=== PATIENT | female | born 1990 | race Caucasian/White ===

== ENCOUNTER 2017-01-09 20:44 | Emergency (ER) | payer SELFPAY ==
[2017-01-09 20:51] VITALS: BP 142/58
--- NOTE | 2017-01-09 20:59 | EDM.PDOC ---
ED HPI GENERAL MEDICAL PROBLEM - General Chief Complaint: Behavioral/Psych Stated Complaint: SUICIDAL Time Seen by Provider: 01/09/17 20:46 - History of Present Illness INITIAL COMMENTS - FREE TEXT/NARRATIVE: HISTORY AND PHYSICAL: History of present illness: This 26-year-old female with history of bipolar disorder presents with chief complaint of depressive episode she states she's feeling overwhelmed and suicidal she has no particular plan she been off her meds since August she comes here after he called the law-enforcement regarding her feelings. Review of systems: As per history of present illness and below otherwise all systems reviewed and negative. Past medical history: As per history of present illness and as reviewed below otherwise noncontributory. Surgical history: As per history of present illness and as reviewed below otherwise noncontributory. Social history: No reported history of drug or alcohol abuse. Family history: As per history of present illness and as reviewed below otherwise noncontributory. Physical exam: HEENT: Atraumatic, normocephalic, pupils reactive, negative for conjunctival pallor or scleral icterus, mucous membranes moist, throat clear, neck supple, nontender, trachea midline. Lungs: Clear to auscultation, breath sounds equal bilaterally, chest nontender. Heart: S1S2, regular, negative for clicks, rubs, or JVD. Abdomen: Soft, nondistended, nontender. Negative for masses or hepatosplenomegaly. Negative for costovertebral tenderness. Pelvis: Stable nontender. Genitourinary: Deferred. Rectal: Deferred. Extremities: Atraumatic, negative for cords or calf pain. Neurovascular unremarkable. Neuro: Awake, alert, oriented. Cranial nerves II through XII unremarkable. Cerebellum unremarkable. Motor and sensory unremarkable throughout. Exam nonfocal. Diagnostics: CBC CMP hCG urine drug screen EtOH Therapeutics: None Impression: #1 depressive episode with suicidal ideation #2 history of bipolar disorder Definitive disposition and diagnosis as appropriate pending reevaluation and review of above. - Related Data Allergies Allergy/AdvReac Type Severity Reaction Status Date / Time loracarbef [From Lorabid] Allergy unknown Verified 01/09/17 20:52 Home Meds: Home Meds . 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 Musculoskeletal History: Reports: None Neurological History: Reports: None Psychiatric History: Reports: Anxiety, Depression Endocrine/Metabolic History: Reports: None Hematologic History: Reports: None Immunologic History: Reports: None Oncologic (Cancer) History: Reports: None Dermatologic History: Reports: None - Infectious Disease History Infectious Disease History: Reports: None - Past Surgical History Female Surgical History: Reports: D&C Social & Family History - Family History Family Medical History: Noncontributory - Tobacco Use Smoking Status *Q: Former Smoker - Caffeine Use Caffeine Use: Reports: Soda - Recreational Drug Use Recreational Drug Use: Yes Recreational Drug Type: Reports: Methamphetamine ED ROS GENERAL - Review of Systems Review Of Systems: ROS reveals no pertinent complaints other than HPI. ED EXAM, GENERAL - Physical Exam Exam: See Below (See dictation) Course - Vital Signs Last Recorded V/S: Last Vital Signs Temp 36.9 C 01/09/17 20:49 Pulse 130 H 01/09/17 20:49 Resp 16 01/09/17 20:49 BP 142/58 H 01/09/17 20:49 Pulse Ox 97 01/09/17 20:49 - Orders/Labs/Meds Orders: Active Orders 24 hr Category Date Time Status EKG 12 Lead [EKG Documentation Completion] [RC] STAT Care 01/09/17 20:52 Active ACETAMINOPHEN [CHEM] Stat Lab 01/09/17 20:48 Ordered CBC WITH AUTO DIFF [HEME] Stat Lab 01/09/17 20:48 Ordered COMPREHENSIVE METABOLIC PN,CMP [CHEM] Stat Lab 01/09/17 20:48 Ordered DRUG SCREEN, URINE [URCHEM] Stat Lab 01/09/17 20:48 Ordered ETHANOL BLOOD MEDICAL [CHEM] Stat Lab 01/09/17 20:48 Ordered FREE T3 [REF] Stat Lab 01/09/17 20:51 Ordered HCG QUALITATIVE,URINE [URCHEM] Stat Lab 01/09/17 20:48 Ordered MAGNESIUM [CHEM] Stat Lab 01/09/17 20:48 Ordered SALICYLATE [CHEM] Stat Lab 01/09/17 20:48 Ordered TSH [CHEM] Stat Lab 01/09/17 20:48 Ordered Departure - Departure Time of Disposition: 20:57 Disposition: DC/Tfer to Psych Hosp/Unit 65 Condition: good Clinical Impression: Depressive disorder Forms: ED Department Discharge - My Orders Last 24 Hours: My Active Orders 01/09/17 20:48 ACETAMINOPHEN [CHEM] Stat CBC WITH AUTO DIFF [HEME] Stat COMPREHENSIVE METABOLIC PN,CMP [CHEM] Stat DRUG SCREEN, URINE [URCHEM] Stat ETHANOL BLOOD MEDICAL [CHEM] Stat HCG QUALITATIVE,URINE [URCHEM] Stat MAGNESIUM [CHEM] Stat SALICYLATE [CHEM] Stat TSH [CHEM] Stat 01/09/17 20:51 FREE T3 [REF] Stat 01/09/17 20:52 EKG 12 Lead [EKG Documentation Completion] [RC] STAT - Assessment/Plan Last 24 Hours: My Active Orders 01/09/17 20:48 ACETAMINOPHEN [CHEM] Stat CBC WITH AUTO DIFF [HEME] Stat COMPREHENSIVE METABOLIC PN,CMP [CHEM] Stat DRUG SCREEN, URINE [URCHEM] Stat ETHANOL BLOOD MEDICAL [CHEM] Stat HCG QUALITATIVE,URINE [URCHEM] Stat MAGNESIUM [CHEM] Stat SALICYLATE [CHEM] Stat TSH [CHEM] Stat 01/09/17 20:51 FREE T3 [REF] Stat 01/09/17 20:52 EKG 12 Lead [EKG Documentation Completion] [RC] STAT
[2017-01-09 21:37] LABS: CHLORIDE,CL 110 mmol/L (98-110); SODIUM,NA 143 mmol/L (136-146)
[2017-01-09 22:03] LABS: ACETAMINOPHEN < 3.0 ug/mL
== END 2017-01-09 21:31 ==
LOC: MW.ED 20:44
DX: F32.9 Major depressive disorder, single episode, unspecified (principal); J45.909 Unspecified asthma, uncomplicated; F41.9 Anxiety disorder, unspecified; Z87.891 Personal history of nicotine dependence
CPT/HCPCS: 36415; 80053; 80305; 81025; 83735; 84443; 84481; 85025; 93005; 99285; G0480; 99283

== ENCOUNTER 2018-04-09 11:00 | Emergency (ER) | payer BC ==
--- NOTE | 2018-04-09 11:16 | EDM.PDOC ---
ED HPI GENERAL MEDICAL PROBLEM - General Stated Complaint: MEDICAL CLEARANCE Time Seen by Provider: 04/09/18 11:10 - History of Present Illness INITIAL COMMENTS - FREE TEXT/NARRATIVE: HISTORY AND PHYSICAL: History of present illness: Patient 27-year-old female history of depression is here in custody of police for medical clearance for police hold . Police were involved in suicide hotline call them for welfare check patient had a superficial self-inflicted abrasion. Patient denies any ingestion patient states she was drinking. She denies up-to- date tetanus Review of systems: As per history of present illness and below otherwise all systems reviewed and negative. Past medical history: As per history of present illness and as reviewed below otherwise noncontributory. Surgical history: As per history of present illness and as reviewed below otherwise noncontributory. Social history: No reported history of drug or alcohol abuse. Family history: As per history of present illness and as reviewed below otherwise noncontributory. Physical exam: HEENT: Atraumatic, normocephalic, pupils reactive, negative for conjunctival pallor or scleral icterus, mucous membranes moist, throat clear, neck supple, nontender, trachea midline. Lungs: Clear to auscultation, breath sounds equal bilaterally, chest nontender. Heart: S1S2, regular, negative for clicks, rubs, or JVD. Abdomen: Soft, nondistended, nontender. Negative for masses or hepatosplenomegaly. Negative for costovertebral tenderness. Pelvis: Stable nontender. Genitourinary: Deferred. Rectal: Deferred. Extremities: Right thigh has a superficial abrasion/laceration good hemostasis, Neuro: Awake, alert, oriented. Cranial nerves II through XII unremarkable. Cerebellum unremarkable. Motor and sensory unremarkable throughout. Exam nonfocal. Diagnostics: None Therapeutics: None Impression: #1 medical clearance for police hold #2 abrasion superficial laceration right Definitive disposition and diagnosis as appropriate pending reevaluation and review of above. - Related Data Allergies Allergy/AdvReac Type Severity Reaction Status Date / Time loracarbef [From Lorabid] Allergy unknown Verified 01/09/17 20:52 Home Meds: Home Meds . 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 Musculoskeletal History: Reports: None Neurological History: Reports: None Psychiatric History: Reports: Anxiety, Depression Endocrine/Metabolic History: Reports: None Hematologic History: Reports: None Immunologic History: Reports: None Oncologic (Cancer) History: Reports: None Dermatologic History: Reports: None - Infectious Disease History Infectious Disease History: Reports: None - Past Surgical History Female Surgical History: Reports: D&C Social & Family History - Family History Family Medical History: Noncontributory - Caffeine Use Caffeine Use: Reports: Soda ED ROS GENERAL - Review of Systems Review Of Systems: ROS reveals no pertinent complaints other than HPI. ED EXAM, GENERAL - Physical Exam Exam: See Below (dictation) Departure - Departure Time of Disposition: 11:15 Disposition: Home, Self-Care 01 Condition: Good Clinical Impression: Encounter for medical clearance for patient hold - Discharge Information Referrals: PCP,None [Primary Care Provider] - Additional Instructions: The following information is given to patients seen in the emergency department who are being discharged to home. This information is to outline your options for follow-up care. We provide all patients seen in our emergency department with a follow-up referral. The need for follow-up, as well as the timing and circumstances, are variable depending upon the specifics of your emergency department visit. If you don't have a primary care physician on staff, we will provide you with a referral. We always advise you to contact your personal physician following an emergency department visit to inform them of the circumstance of the visit and for follow-up with them and/or the need for any referrals to a consulting specialist. The emergency department will also refer you to a specialist when appropriate. This referral assures that you have the opportunity for followup care with a specialist. All of these measure are taken in an effort to provide you with optimal care, which includes your followup. Under all circumstances we always encourage you to contact your private physician who remains a resource for coordinating your care. When calling for followup care, please make the office aware that this follow-up is from your recent emergency room visit. If for any reason you are refused follow-up, please contact the [facility] emergency department at and asked to speak to the emergency department charge nurse. Follow-up primary medical doctor return as needed as discussed
[2018-04-09 11:18] VITALS: BP 123/89
[2018-04-09] MEDS ORDERED: Bacitracin Oint 1 GM U/D Packet TOP ONE (11:27)
[2018-04-09] MEDS ORDERED: Diphtheria,Pertussis(Acell),Tetanus Vaccine 0.5 ML Syringe IM ONE (11:27)
== END 2018-04-09 11:40 | disposition home or self-care (01) ==
LOC: MW.ED 11:00
DX: S71.111A Laceration without foreign body, right thigh, initial encounter (principal); F32.9 Major depressive disorder, single episode, unspecified; Z23 Encounter for immunization; Z88.8 Allergy status to other drugs, medicaments and biological substances; X83.8XXA Intentional self-harm by other specified means, initial encounter
CPT/HCPCS: 90471; 90715; 99282; 99282-25

== ENCOUNTER 2020-08-28 08:39 | Day surgery (SDC) | payer BC ==
[2020-08-28] MEDS ORDERED: Acetaminophen 1,000 MG in Premix Bag 1 BAG IV ONE (09:44)
[2020-08-28] MEDS ORDERED: Lactated Ringers 1,000 ML IV SCH ×2 (10:00→19:45)
[2020-08-28] MEDS ORDERED: metroNIDAZOLE/Normal Saline 500 MG in Premix Bag 1 BAG IV ONE (10:00)
--- NOTE | 2020-08-28 10:18 | PCM.PREANE ---
Preanesthetic Assessment - Anesthesia/Transfusion/Family Hx Anesthesia History: Prior Anesthesia Without Reaction Family History of Anesthesia Reaction: No Transfusion History: Prior Transfusion Without Reaction - Review of Systems General: No Symptoms Pulmonary: No Symptoms Cardiovascular: No Symptoms Gastrointestinal: No Symptoms Neurological: No Symptoms Other: Reports: None - Physical Assessment NPO Status Date: 08/27/20 Height: 5 ft 4 in Weight: 68.946 kg ASA Class: 2 Mental Status: Alert & Oriented x3 Airway Class: Mallampati = 2 Dentition: Reports: Normal Dentition ROM/Head Extension: Full Lungs: Clear to Auscultation, Normal Respiratory Effort Cardiovascular: Regular Rate, Regular Rhythm - Lab Values: Laboratory Last Values WBC 7.93 K/uL (4.0-11.0) 08/28/20 09:50 RBC 3.81 M/uL (4.30-5.90) L 08/28/20 09:50 Hgb 9.4 g/dL (12.0-16.0) L 08/28/20 09:50 Hct 30.8 % (36.0-46.0) L 08/28/20 09:50 MCV 80.8 fL (80.0-98.0) 08/28/20 09:50 MCH 24.7 pg (27.0-32.0) L 08/28/20 09:50 MCHC 30.5 g/dL (31.0-37.0) L 08/28/20 09:50 RDW Std Deviation 50.2 fl (28.0-62.0) 08/28/20 09:50 RDW Coeff of Mega 17 % (11.0-15.0) H 08/28/20 09:50 Plt Count 517 K/uL (150-400) H 08/28/20 09:50 MPV 9.40 fL (7.40-12.00) 08/28/20 09:50 Neut % (Auto) 66.3 % (48.0-80.0) 08/28/20 09:50 Lymph % (Auto) 26.7 % (16.0-40.0) 08/28/20 09:50 Stanton % (Auto) 5.3 % (0.0-15.0) 08/28/20 09:50 Eos % (Auto) 1.4 % (0.0-7.0) 08/28/20 09:50 Baso % (Auto) 0.3 % (0.0-1.5) 08/28/20 09:50 Neut # (Auto) 5.3 K/uL (1.4-5.7) 08/28/20 09:50 Lymph # (Auto) 2.1 K/uL (0.6-2.4) 08/28/20 09:50 Stanton # (Auto) 0.4 K/uL (0.0-0.8) 08/28/20 09:50 Eos # (Auto) 0.1 K/uL (0.0-0.7) 08/28/20 09:50 Baso # (Auto) 0.0 K/uL (0.0-0.1) 08/28/20 09:50 Nucleated RBC % 0.0 /100WBC 08/28/20 09:50 Nucleated RBCs # 0 K/uL 08/28/20 09:50 - Allergies Allergies/Adverse Reactions: Allergies Allergy/AdvReac Type Severity Reaction Status Date / Time loracarbef [From Lorabid] Allergy Cannot Verified 08/22/20 09:48 Remember - Blood Blood Available: No - Anesthesia Plan Pre-Op Medication Ordered: None - Acknowledgements Anesthesia Type Planned: General Anesthesia Pt an Appropriate Candidate for the Planned Anesthesia: Yes Alternatives and Risks of Anesthesia Discussed w Pt/Guardian: Yes Pt/Guardian Understands and Agrees with Anesthesia Plan: Yes Additional Comments: anes prob list: ptsd, hx polysubst abuse, no alcohol x 3 mo, last meth 1 wk ago. 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 Musculoskeletal History: Reports: Back Pain, Chronic Neurological History: Reports: Migraines Psychiatric History: Reports: Addiction, Anxiety, Depression, PTSD, Other (See Below) Other Psychiatric History: deliberate self-cutting Endocrine/Metabolic History: Reports: None Hematologic History: Reports: Blood Transfusion(s) Immunologic History: Reports: None Oncologic (Cancer) History: Reports: None Dermatologic History: Reports: None - Infectious Disease History Infectious Disease History: Reports: None - Past Surgical History Head Surgeries/Procedures: Reports: None HEENT Surgical History: Reports: Tonsillectomy Cardiovascular Surgical History: Reports: None Respiratory Surgical History: Reports: None GI Surgical History: Reports: None Female Surgical History: Reports: D&C Endocrine Surgical History: Reports: None Neurological Surgical History: Reports: None Musculoskeletal Surgical History: Reports: None Oncologic Surgical History: Reports: None Dermatological Surgical History: Reports: None - SUBSTANCE USE Tobacco Use Within Last Twelve Months: Smokeless Tobacco Recreational Drug Type: Reports: Methamphetamine - HOME MEDS Home Medications: Home Meds traZODone HCl [Trazodone HCl] 50 mg PO BEDTIME 10/30/18 [History] FLUoxetine HCl [Fluoxetine HCl] 40 mg PO DAILY 08/22/20 [History] Naltrexone 50 mg PO DAILY 08/22/20 [History] SUMAtriptan succinate [Imitrex] 1 tab PO ASDIRECTED PRN 08/22/20 [History] traMADol HCl [Tramadol HCl] 1 tab PO ASDIRECTED PRN 08/22/20 [History] - CURRENT (IN HOUSE) MEDS Current Meds: Current Medications Gentamicin Sulfate 80 mg/ (Sodium Chloride) 52 mls @ 100 mls/hr IV ONETIME ONE Stop: 08/28/20 10:31 Metronidazole 500 mg/ Premix 100 mls @ 100 mls/hr IV ONETIME ONE Stop: 08/28/20 10:59 Lactated Ringer's (Ringers, Lactated) 1,000 mls @ 125 mls/hr IV ASDIRECTED BHARAT Discontinued Medications Acetaminophen 1,000 mg/ Premix 100 mls @ 400 mls/hr IV NOW ONE Stop: 08/28/20 09:58
[2020-08-28 10:36] LABS: BLOOD UREA NITROGEN,BUN 8 mg/dL (7.0-18.0); CARBON DIOXIDE,CO2 26.9 mmol/L (21.0-32.0); CHLORIDE,CL 103 mmol/L (98-107); GLUCOSE RANDOM 88 mg/dL (74-106); POTASSIUM,K 3.9 mmol/L (3.5-5.1); SODIUM,NA 137 mmol/L (136-145)
[2020-08-28] MEDS ORDERED: Scopolamine 1.5 MG Transdermal Patch TRDERM PRN (10:44)
[2020-08-28] MEDS ORDERED: Octyl 2-Cyanoacrylate 1 Tube ONE (10:52)
[2020-08-28] MEDS ORDERED: Bupivacaine 25%/EPINEPHrine/PF 30 ML ONE (10:53)
[2020-08-28] MEDS ORDERED: Midazolam 1 MG/ML 2 ML SDV ONE (10:58)
[2020-08-28] MEDS ORDERED: Propofol 200 MG/20 ML SDV ONE (10:58)
[2020-08-28] MEDS ORDERED: fentaNYL 250 MCG/5 ML SDV ONE (10:58)
[2020-08-28] MEDS ORDERED: Lidocaine 2% 5 ML SDV ONE (10:59)
[2020-08-28] MEDS ORDERED: Ondansetron 4 MG/2 ML SDV ONE (10:59)
[2020-08-28] MEDS ORDERED: Glycopyrrolate 0.2 MG/ML SDV ONE (10:59)
[2020-08-28] MEDS ORDERED: Ketorolac 30 MG/ML SDV ONE (10:59)
[2020-08-28] MEDS ORDERED: Rocuronium Bromide 50 MG/5 ML Syringe ONE ×2 (10:59→12:34)
[2020-08-28] MEDS ORDERED: HYDROmorphone 2 MG/ML Syringe ONE (12:23)
[2020-08-28] MEDS ORDERED: fentaNYL 100 MCG/2 ML SDV ONE (12:51)
[2020-08-28] MEDS ORDERED: Labetalol 100 MG/20 ML MDV ONE (13:14)
[2020-08-28] MEDS ORDERED: Ondansetron 4 MG/2 ML SDV IVPUSH PRN ×2 (13:34→19:30)
[2020-08-28] MEDS ORDERED: Atropine 0.1 MG/ML 10 ML Syringe IVPUSH PRN ×2 (13:34)
[2020-08-28] MEDS ORDERED: fentaNYL 100 MCG/2 ML SDV IVPUSH PRN (13:34)
[2020-08-28] MEDS ORDERED: Albuterol 0.083% 2.5 MG/3 ML Neb Soln NEB PRN (13:34)
[2020-08-28] MEDS ORDERED: EPINEPHrine 1:10,000 1 MG/10 ML Syringe IVPUSH PRN (13:34)
[2020-08-28] MEDS ORDERED: 50% Dextrose in Water 50 ML Syringe IVPUSH PRN (13:34)
[2020-08-28] MEDS ORDERED: Naloxone 0.4 MG/ML Syringe IVPUSH PRN (13:34)
[2020-08-28] MEDS ORDERED: HYDROmorphone 2 MG/ML Syringe IVPUSH PRN (13:34)
--- NOTE | 2020-08-28 14:33 | PCM.OPNOTE ---
- General Post-Op/Procedure Note Date of Surgery/Procedure: 08/28/20 Operative Procedure(s): Laparoscopic cholecytectomy. Lysis of adhesions Findings: White gallbladder with stone and adhesions, Multiple abdominal adhesions. Dictation #[id number] Pre Op Diagnosis: Symptomatic cholelithiasis Post-Op Diagnosis: Chronic cholecystitis Primary Surgeon: Mao Nunes Pathology: gallbladder. EBL in mLs: 15 Condition: Good Free Text/Narrative:: Intake & Output 08/27/20 08/28/20 08/28/20 22:59 06:59 14:59 Output Total 100 Balance -100
[2020-08-28] MEDS ORDERED: Ketorolac 30 MG/ML SDV IVPUSH ONE (14:49)
--- NOTE | 2020-08-28 15:04 | PCM.POSTAN ---
POST ANESTHESIA ASSESSMENT - MENTAL STATUS Mental Status: Alert, Oriented - VITAL SIGNS Vital Signs: Last Vital Signs Temp 97.3 F 08/28/20 14:23 Pulse 89 08/28/20 14:38 Resp 15 08/28/20 14:38 BP 100/54 L 08/28/20 14:38 Pulse Ox 94 L 08/28/20 14:38 - RESPIRATORY Respiratory Status: Respiratory Rate WNL, Airway Patent, O2 Saturation Stable - CARDIOVASCULAR CV Status: Pulse Rate WNL, Blood Pressure Stable - GASTROINTESTINAL GI Status: No Symptoms - POST OP HYDRATION Hydration Status: Adequate & Stable
[2020-08-28] MEDS ORDERED: diphenhydrAMINE 50 MG/ML SDV IVPUSH ONE (16:49)
--- NOTE | 2020-08-28 16:54 | OR ---
SURGEON: NIC PALACIOS MD DATE OF PROCEDURE: 08/28/2020 PREOPERATIVE DIAGNOSIS: Symptomatic cholelithiasis. POSTOPERATIVE DIAGNOSIS: Symptomatic cholelithiasis with chronic cholecystitis and abdominal adhesions. PROCEDURE PERFORMED: Laparoscopic cholecystectomy and lysis of adhesions. FINDINGS: Inflamed gallbladder with stone and adhesions. PRIMARY SURGEON: Nic Palacios MD ANESTHESIA: General. BLOOD LOSS: 15. COMPLICATIONS: None. SPECIMEN: Gallbladder. REASON FOR PROCEDURE: The patient is a pleasant 29-year-old female who has had some abdominal pain for quite some time. It comes and goes, but is mainly pretty steady. She was told multiple times she needs to go to the ER if the pain was severe; however, she did not want to go because of the potential cost. She had an ultrasound, it showed gallstones. She did get some preop labs which showed a normal white cell count and not elevated LFTs, in fact AST is of 12, which was a little low. I did go over with the patient risks, goals, and alternatives to the gallbladder surgery which include, but not limited to, bleeding; bile leak; injury to nearby structures, common bile duct and duodenum; retained gallstones with open hernia formation; and that this may be something other than a gallbladder. The patient understands, also was talking with the . Again, I went over with the patient today, but again explained to them that if she was having severe pain, she really needed to go to the ER and that we do not prescribe medicines to mask potentially major gallbladder infections. After talking with both, they understood and they were happy before the surgery. OPERATIVE NARRATIVE: The patient was brought back to the OR. She was prepped and draped in usual sterile fashion. Only one SCD was placed because she had an IV in her foot. A preoperative antibiotic was given and anesthesia provided by the Anesthesia team. After time-out was performed, an infraumbilical incision was made down to the fascia. Fascia was then entered in open Micheal technique. Micheal trocar was placed and pneumoperitoneum was established. Entered the abdomen, the patient did have a lot of loose abdominal adhesions. These were easily taken down with just some blunt dissection with the scope. Now, three more 5 mm trocars were placed, one in the midepigastric, one in the right upper quadrant, one in the right lower abdomen, were placed under direct visualization. The gallbladder had a whitish hue and the omentum was fairly stuck to it, but with some gentle dissection with blunt and Harmonic scalpel the omentum came down. Again, with some gentle, mainly blunt dissection, did dissect out the cystic duct and the cystic artery. She did have a little bit extra adipose around here and tissue was edematous, so took a little extra time, but we did get a very good critical view of the cystic duct, cystic artery, and liver bed. Did dissect up all the way at the gallbladder fossa, did have a great critical view. Now, clips were placed on the cystic duct and the cystic artery and transected. The rest of the gallbladder was removed with the Harmonic scalpel, no other tubular structures were encountered. The gallbladder was then placed in the Endo Catch bag. Now, the rest of the abdomen was again inspected. The bed had good hemostasis, clips were in place and did a little bit of suction and irrigation. Now, the gallbladder was removed with the Endo Catch bag and the pneumoperitoneum was released, another 5 mm trocar was removed. The Micheal trocar incision and the fascia were closed with 0 Vicryl in a figure- of-eight fashion. There was good closure. Now, all the trocar sites were injected with Exparel and closed with 4-0 Monocryl and Dermabond. At the end of the case, sponge and needle counts were correct. The patient was transferred to the recovery room in stable condition. YOON / LORI /[id number]
[2020-08-28] MEDS ORDERED: Ondansetron 4 MG/2 ML SDV IVPUSH ONE (17:23)
--- NOTE | 2020-08-28 17:35 | PCM.SN.2 ---
- Free Text/Narrative Note: Patient had witnessed episodes of desaturation: mid 80s-90s which would improve with supplemental oxygen. Once saturations improved oxygen, the patient was weaned down to room air, and patient desaturated again which was witnessed by me and Lindsay RN. The decision was made by me to admit the patient for observation . This was discussed with the patient, and Dr. Nunes. The patient also complains of itching and Benadryl was given for this. We will observe the patient fo [address] Nunes will put in the orders for pain medications. Plan: 1. Continuous Pulse oximetry 2. Nasal Cannula wean as tolerated per orders 3. Regular diet as tolerated 4. Zofran 4 mg prn for N/V 5. Continue Incentive Spirometer per Dr. Nunes's orders 6. Tramadol will be ordered by Dr. Nunes. 7. Will reassess tomorrow
[2020-08-28] MEDS: traMADol 50 MG Tab PO PRN (21:26)
[2020-08-29] MEDS: traMADol 50 MG Tab PO PRN (03:55)
--- NOTE | 2020-08-29 06:30 | PCM48HPAN ---
Post Anesthesia Note - EVALUATION WITHIN 48HRS OF ANESTHETIC Vital Signs in Normal Range: Yes Patient Participated in Evaluation: Yes Respiratory Function Stable: Yes Airway Patent: Yes Cardiovascular Function Stable: Yes Hydration Status Stable: Yes Pain Control Satisfactory: Yes Nausea and Vomiting Control Satisfactory: Yes Mental Status Recovered: Yes Vital Signs: Last Vital Signs Temp 36.6 C 08/29/20 04:05 Pulse 75 08/29/20 04:05 Resp 14 08/29/20 04:05 BP 106/55 L 08/29/20 04:05 Pulse Ox 95 08/29/20 04:05 - COMMENTS/OBSERVATIONS Free Text/Narrative:: Patient doing much better spo2 95% and higher. She may discharged.
[2020-08-29 11:05] VITALS: BP 94/55; PULSE 71
--- NOTE | 2020-08-29 11:20 | PN ---
SUBJECTIVE: The patient is postop day 1 from her laparoscopic cholecystectomy. Yesterday, in the recovery room, Dr. Rivera noted the patient had a couple of episodes of desaturation. She was doing better; however, Dr. Rivera would like to keep her overnight for observation until the anesthesia from her case wore off a little better. Over the evening, the patient was weaned off her oxygen and has been saturating well. The patient says she is feeling better. She does have some mild abdominal pain. She has been eating; in fact, there is a barbecue box in the room that her brought for her. She says eat this without issues. She is passing some flatus but no BM yet. The patient feels ready to go home. OBJECTIVE: GENERAL: The patient is lying comfortably in her hospital bed. She is alert, oriented, and in no acute distress. VITAL SIGNS: Temperature is 97.9, pulse is 75, blood pressure is 106/55, and saturating 95% on room air. LUNGS: Clear to auscultation bilaterally. No rhonchi or wheezing heard. HEART: Regular rate and rhythm. No murmur is appreciated. ABDOMEN: Soft with some mild tenderness, expected after her surgery. The incisions are all clean, dry, and intact with Dermabond in place. No signs of infection. ASSESSMENT AND PLAN: The patient is postoperative day 1 from a laparoscopic cholecystectomy, doing well. We will send her home. I went over the discharge instructions given to the patient. She should take it easy for at least the next week for recovery. She may shower today. I again stressed to the patient it is important that if she is having issues, she needs to call or the patient should go to the emergency room. She should not wait at home and tough it out. The patient understands. YOON SANDOVAL /[id number] SAILAJA
== END 2020-08-29 09:53 | disposition home or self-care (01) ==
LOC: MW.SDS 08:39 → MW.MS 17:08 → MW.SDS 08-29 09:53
PROVIDERS: ATTEND Surgery
DX: K80.10 Calculus of gallbladder with chronic cholecystitis without obstruction (principal); K66.0 Peritoneal adhesions (postprocedural) (postinfection); K82.8 Other specified diseases of gallbladder; F17.200 Nicotine dependence, unspecified, uncomplicated; F41.9 Anxiety disorder, unspecified; F32.9 Major depressive disorder, single episode, unspecified; Z88.8 Allergy status to other drugs, medicaments and biological substances; Z79.899 Other long term (current) drug therapy; Z98.890 Other specified postprocedural states
CPT/HCPCS: 36415; 47562; 80053; 84703; 85025; 88304; A9270; J1170; J1200; J1580; J1885; J2001; J2250; J2704; J3010; J3490; J7120; J2405

== ENCOUNTER 2021-05-26 07:04 | Day surgery (SDC) | payer BC ==
[~2021-05-26 07:04] MED LIST: Scopolamine 1.5 MG Transdermal Patch ONE
[2021-05-26] MEDS ORDERED: Ketorolac 30 MG/ML SDV ONE (07:23)
[2021-05-26] MEDS ORDERED: Ondansetron 4 MG/2 ML SDV ONE (07:23)
[2021-05-26] MEDS ORDERED: Metoclopramide 10 MG/2 ML SDV ONE (07:23)
[2021-05-26] MEDS ORDERED: Dexamethasone 4 MG/ML 5 ML MDV ONE (07:23)
[2021-05-26] MEDS ORDERED: Lidocaine 2% 5 ML SDV ONE (07:23)
[2021-05-26] MEDS ORDERED: propofoL 50 ML ONE (07:25)
[2021-05-26] MEDS ORDERED: Naloxone 0.4 MG/ML Syringe IVPUSH PRN (08:13)
[2021-05-26] MEDS ORDERED: fentaNYL 100 MCG/2 ML SDV IVPUSH PRN (08:13)
[2021-05-26] MEDS ORDERED: Morphine 2 MG/ML SYRINGE IVPUSH PRN (08:13)
[2021-05-26] MEDS ORDERED: Metoclopramide 10 MG/2 ML SDV IVPUSH PRN (08:13)
[2021-05-26] MEDS ORDERED: Ondansetron 4 MG/2 ML SDV IVPUSH PRN (08:13)
[2021-05-26] MEDS ORDERED: HYDROmorphone 2 MG/ML Syringe IVPUSH PRN (08:13)
[2021-05-26] MEDS ORDERED: Albuterol 0.083% 2.5 MG/3 ML Neb Soln NEB PRN (08:13)
--- NOTE | 2021-05-26 08:15 | PCM.PREANE ---
Preanesthetic Assessment - Anesthesia/Transfusion/Family Hx Anesthesia History: Prior Anesthesia Reaction Type of Anesthesia Reaction: Excessive Somnolence Family History of Anesthesia Reaction: No Transfusion History: Prior Transfusion Without Reaction - Review of Systems General: No Symptoms Pulmonary: No Symptoms Cardiovascular: No Symptoms Gastrointestinal: No Symptoms Neurological: No Symptoms Other: Reports: None, Depression, Anxiety - Physical Assessment NPO Status Date: 05/26/21 NPO Status Time: 00:00 Vital Signs: Last Vital Signs Temp 97.9 F 05/26/21 07:39 Pulse 63 05/26/21 07:39 Resp 16 05/26/21 07:39 BP 101/53 L 05/26/21 07:39 Pulse Ox 98 05/26/21 07:39 Height: 5 ft 4 in Weight: 170 lb ASA Class: 3 Mental Status: Alert & Oriented x3 Airway Class: Mallampati = 2 Dentition: Reports: Normal Dentition, Broken Tooth/Teeth, Missing Tooth/Teeth Thyro-Mental Finger Breadths: 2 Mouth Opening Finger Breadths: 3 ROM/Head Extension: Full Lungs: Clear to Auscultation, Normal Respiratory Effort Cardiovascular: Regular Rate, Regular Rhythm - Lab Values: Laboratory Last Values WBC 11.63 K/uL (4.0-11.0) H 05/26/21 07:19 RBC 3.78 M/uL (4.30-5.90) L 05/26/21 07:19 Hgb 10.2 g/dL (12.0-16.0) L 05/26/21 07:19 Hct 32.0 % (36.0-46.0) L 05/26/21 07:19 MCV 84.7 fL (80.0-98.0) 05/26/21 07:19 MCH 27.0 pg (27.0-32.0) 05/26/21 07:19 MCHC 31.9 g/dL (31.0-37.0) 05/26/21 07:19 RDW Std Deviation 46.7 fl (28.0-62.0) 05/26/21 07:19 RDW Coeff of Mega 15 % (11.0-15.0) 05/26/21 07:19 Plt Count 387 K/uL (150-400) 05/26/21 07:19 MPV 10.00 fL (7.40-12.00) 05/26/21 07:19 Neut % (Auto) 68.7 % (48.0-80.0) 05/26/21 07:19 Lymph % (Auto) 24.4 % (16.0-40.0) 05/26/21 07:19 Franklin % (Auto) 6.1 % (0.0-15.0) 05/26/21 07:19 Eos % (Auto) 0.5 % (0.0-7.0) 05/26/21 07:19 Baso % (Auto) 0.3 % (0.0-1.5) 05/26/21 07:19 Neut # (Auto) 8.0 K/uL (1.4-5.7) H 05/26/21 07:19 Lymph # (Auto) 2.8 K/uL (0.6-2.4) H 05/26/21 07:19 Franklin # (Auto) 0.7 K/uL (0.0-0.8) 05/26/21 07:19 Eos # (Auto) 0.1 K/uL (0.0-0.7) 05/26/21 07:19 Baso # (Auto) 0.0 K/uL (0.0-0.1) 05/26/21 07:19 Nucleated RBC % 0.0 /100WBC 05/26/21 07:19 Nucleated RBCs # 0 K/uL 05/26/21 07:19 HCG, Qual NEGATIVE (NEG) 05/26/21 07:19 - Allergies Allergies/Adverse Reactions: Allergies Allergy/AdvReac Type Severity Reaction Status Date / Time loracarbef [From Lorabid] Allergy Rash Verified 05/14/21 09:52 - Acknowledgements Anesthesia Type Planned: General Anesthesia Pt an Appropriate Candidate for the Planned Anesthesia: Yes Alternatives and Risks of Anesthesia Discussed w Pt/Guardian: Yes Pt/Guardian Understands and Agrees with Anesthesia Plan: Yes PreAnesthesia Questionnaire HEENT History: Reports: Other (See Below) Other HEENT History: wears glasses/contacts Cardiovascular History: Reports: None Respiratory History: Reports: Asthma Gastrointestinal History: Reports: None Genitourinary History: Reports: None [employer] History: Reports: , Spontaneous Musculoskeletal History: Reports: None Neurological History: Reports: Migraines Psychiatric History: Reports: Addiction, Anxiety, Bipolar, Depression, PTSD, Other (See Below) Other Psychiatric History: hx of deliberate self-cutting Endocrine/Metabolic History: Reports: None Hematologic History: Reports: Blood Transfusion(s) Immunologic History: Reports: None Oncologic (Cancer) History: Reports: None Dermatologic History: Reports: None - Infectious Disease History Infectious Disease History: Reports: None - Past Surgical History Head Surgeries/Procedures: Reports: None HEENT Surgical History: Reports: Tonsillectomy Cardiovascular Surgical History: Reports: None Respiratory Surgical History: Reports: None GI Surgical History: Reports: Cholecystectomy Female Surgical History: Reports: D&C Endocrine Surgical History: Reports: None Neurological Surgical History: Reports: None Musculoskeletal Surgical History: Reports: None Oncologic Surgical History: Reports: None Dermatological Surgical History: Reports: None - SUBSTANCE USE Tobacco Use Within Last Twelve Months: Smokeless Tobacco - HOME MEDS Home Medications: Home Meds Albuterol Sulfate [Albuterol Sulfate HFA] 1 - 2 puff INH ASDIRECTED PRN 05/14/21 [History] - CURRENT (IN HOUSE) MEDS Current Meds: Current Medications Discontinued Medications Dexamethasone (Dexamethasone 4 Mg/Ml 5 Ml Mdv) Confirm Administered Dose 20 mg .ROUTE .STK-MED ONE Stop: 05/26/21 07:24 Acetaminophen (Ofirmev 1000 Mg/100 Ml) Confirm Administered Dose 100 mls @ as directed .ROUTE .STK-MED ONE Stop: 05/26/21 07:22 Propofol (Diprivan 50 Ml) Confirm Administered Dose 50 mls @ as directed .ROUTE .STK-MED ONE Stop: 05/26/21 07:26 Ketorolac Tromethamine (Ketorolac 30 Mg/Ml Sdv) Confirm Administered Dose 30 mg .ROUTE .STK-MED ONE Stop: 05/26/21 07:24 Lidocaine (Lidocaine 2% 5 Ml Sdv) Confirm Administered Dose 5 ml .ROUTE .STK-MED ONE Stop: 05/26/21 07:24 Metoclopramide HCl (Metoclopramide 10 Mg/2 Ml Sdv) Confirm Administered Dose 10 mg .ROUTE .STK-MED ONE Stop: 05/26/21 07:24 Ondansetron HCl (Ondansetron 4 Mg/2 Ml Sdv) Confirm Administered Dose 4 mg .ROUTE .STK-MED ONE Stop: 05/26/21 07:24 Scopolamine (Scopolamine 1.5 Mg Transdermal Patch) Confirm Administered Dose 1.5 mg .ROUTE .[facility] ONE Stop: 05/26/21 07:04
[2021-05-26] MEDS ORDERED: fentaNYL 100 MCG/2 ML SDV ONE (08:20)
--- NOTE | 2021-05-26 09:11 | PCM.OPNOTE ---
- General Post-Op/Procedure Note Date of Surgery/Procedure: 05/26/21 Operative Procedure(s): Operative hysteroscopy with polypectomy, dilation and curettage Findings: Anteverted uterus sounded to 10cm. Large endometrial polyp with thin stalk originating at the left mid-uterine wall extruding through the cervix. Pre Op Diagnosis: 1. Endometrial polyp. 2. Excessive and frequent menstruation with irregular cycles Post-Op Diagnosis: 1. Endometrial polyp. 2. Excessive and frequent menstruation with irregular cycles Anesthesia Technique: General LMA Primary Surgeon: Sierra King [employer] Technologist: Gael Yost Pathology: Endometrial polyp, endometrial curettings Fluid Replacement, Intraop: 800 Output, Urine Amount: 75 EBL in mLs: 10 Complications: None known Condition: Good Free Text/Narrative:: Fluid deficit 100cc at the end of procedure Dictation #[id number]
--- NOTE | 2021-05-26 09:11 | PCM.POSTAN ---
POST ANESTHESIA ASSESSMENT - MENTAL STATUS Mental Status: Alert, Oriented - VITAL SIGNS Vital Signs: Last Vital Signs Temp 36.6 C 05/26/21 07:39 Pulse 63 05/26/21 07:39 Resp 16 05/26/21 07:39 BP 101/53 L 05/26/21 07:39 Pulse Ox 98 05/26/21 07:39 - RESPIRATORY Respiratory Status: Respiratory Rate WNL, Airway Patent, O2 Saturation Stable - CARDIOVASCULAR CV Status: Pulse Rate WNL, Blood Pressure Stable - GASTROINTESTINAL GI Status: No Symptoms - POST OP HYDRATION Hydration Status: Adequate & Stable
--- NOTE | 2021-05-26 09:12 | PCM48HPAN ---
Post Anesthesia Note - EVALUATION WITHIN 48HRS OF ANESTHETIC Vital Signs in Normal Range: Yes Patient Participated in Evaluation: Yes Respiratory Function Stable: Yes Airway Patent: Yes Cardiovascular Function Stable: Yes Hydration Status Stable: Yes Pain Control Satisfactory: Yes Nausea and Vomiting Control Satisfactory: Yes Mental Status Recovered: Yes Vital Signs: Last Vital Signs Temp 36.6 C 05/26/21 07:39 Pulse 63 05/26/21 07:39 Resp 16 05/26/21 07:39 BP 101/53 L 05/26/21 07:39 Pulse Ox 98 05/26/21 07:39
[2021-05-26 11:40] VITALS: BP 102/56; PULSE 79
--- NOTE | 2021-05-26 15:11 | OR ---
SURGEON: HAILE FUENTES MD DATE OF PROCEDURE: 05/26/2021 PREOPERATIVE DIAGNOSES: 1. Endometrial polyp. 2. Excessive and frequent menstruation with irregular cycles. POSTOPERATIVE DIAGNOSES: 1. Endometrial polyp. 2. Excessive and frequent menstruation with irregular cycles. PROCEDURES: Operative hysteroscopy with polypectomy and dilation and curettage. PRIMARY SURGEON: Haile Fuentes MD ADDITIONAL SURGEON: Gael Yost MD ANESTHESIA: LMA. COMPLICATIONS: None known. ESTIMATED BLOOD LOSS: 10 mL. INTRAVENOUS FLUIDS: 800 mL of crystalloid. FLUID DEFICIT: 100 mL at the end of the procedure. URINE OUTPUT: 75 mL straight catheterized prior to procedure. INDICATIONS: The patient is a 30-year-old female with excessive and frequent vaginal bleeding with a known endometrial polyp. FINDINGS: Anteverted uterus sounded to 10 cm. Large endometrial polyp with a thin stalk originating at the left mid uterine wall, extruding through the cervix. PATHOLOGY: Endometrial polyp, endometrial curettings. PROCEDURE IN DETAIL: The patient was taken to the operating room where an LMA was introduced. She was then prepped and draped in the dorsal lithotomy position. The bladder was then drained. A time-out was then held. An open-sided Graves speculum was inserted into the vagina to visualize the cervix, which was then grasped at 12 o'clock with a long Allis. The endometrial polyp was noted to be extruding through the cervix at this time. The uterus was sounded to 10 cm, and MyoSure hysteroscope was then inserted into the cervix and to the uterus. Bilateral ostia were visualized without difficulty. The MyoSure was then introduced and used to sever the thin stalk. The MyoSure and hysteroscope were then removed, and the polyp was then grasped with ring forceps and removed through the cervical os and has been sent to Pathology. The MyoSure scope was then inserted one additional time, and small amount of polyp stalk was noted to be adhered to the left uterine sidewall. The MyoSure device was then introduced once again, and this portion of the stalk was removed. The MyoSure and hysteroscope were then removed from the uterus, and sharp curettage was then performed with a medium Agosto curette, and specimen was sent to Pathology. A small amount of oozing was noted at the cervical os, and silver nitrate was used to achieve hemostasis. The Allis clamp was then removed. Hemostasis was noted. All instruments were then removed from the vagina. Sponge, lap, and needle counts were correct x2. The patient was taken to recovery in stable condition. VIKTORIA SANDOVAL /[id number] MTDD
== END 2021-05-26 11:34 | disposition home or self-care (01) ==
LOC: MW.SDS 07:04
PROVIDERS: ATTEND Obstetrics & Gynecology
DX: N84.0 Polyp of corpus uteri (principal); J45.909 Unspecified asthma, uncomplicated; Z98.890 Other specified postprocedural states; Z79.899 Other long term (current) drug therapy; Z90.49 Acquired absence of other specified parts of digestive tract; Z88.8 Allergy status to other drugs, medicaments and biological substances
CPT/HCPCS: 36415; 58558; 84703; 85025; J0131; J1100; J1885; J2370; J2704; J3010; 00952; 88305; J2405; J2765

== ENCOUNTER 2021-08-06 15:54 | Emergency (ER) | payer BC, OTHER ==
[2021-08-06] MEDS ORDERED: Bacitracin Oint 1 GM U/D Packet TOP ONE (15:55)
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
[2021-08-06 16:17] VITALS: BP 121/64; PULSE 83
[2021-08-06] MEDS ORDERED: Sodium Chloride 0.9% 1,000 ML IV ONE (16:43)
== END 2021-08-06 17:10 ==
LOC: MW.ED 15:54
DX: S71.111A Laceration without foreign body, right thigh, initial encounter (principal); F19.10 Other psychoactive substance abuse, uncomplicated; J45.909 Unspecified asthma, uncomplicated; Z88.8 Allergy status to other drugs, medicaments and biological substances; X78.8XXA Intentional self-harm by other sharp object, initial encounter; Y92.009 Unspecified place in unspecified non-institutional (private) residence as the place of occurrence of the external cause
CPT/HCPCS: 12005; 99284-25

== ENCOUNTER 2021-08-06 23:23 | Emergency (ER) | payer BC, OTHER ==
[2021-08-06 23:32] VITALS: BP 134/83; PULSE 86
[2021-08-06] MEDS ORDERED: Bacitracin Oint 1 GM U/D Packet TOP ONE (23:48)
[2021-08-06] MEDS ORDERED: Bacitracin Oint 1 GM U/D Packet ONE (23:49)
[2021-08-06] MEDS ORDERED: diphenhydrAMINE 50 MG/ML SDV IM ONE (23:52)
--- NOTE | 2021-08-06 23:56 | EDM.PDOC ---
ED HPI GENERAL MEDICAL PROBLEM - General Chief Complaint: Behavioral/Psych Stated Complaint: BLEEDING FROM STITCHES Time Seen by Provider: 08/06/21 23:27 Source of Information: Reports: Patient History Limitations: Reports: No Limitations - History of Present Illness INITIAL COMMENTS - FREE TEXT/NARRATIVE: Patient is a 30-year-old female presents today for having her laceration repair. Patient was seen earlier for psychiatric issue and had a laceration to her right thigh that was sutured. Patient pulled some when she was out in penitentiary while she was in a hole. We will repair the sutures for. She denies any other complaints. Patient still waiting for placement of the police station. R leg Pain Score (Numeric/FACES): 8 - Related Data Allergies Allergy/AdvReac Type Severity Reaction Status Date / Time loracarbef [From Lorabid] Allergy Rash Verified 08/06/21 23:25 Home Meds: Home Meds . [No Known Home Meds] 08/06/21 [History] Past Medical History HEENT History: Reports: Other (See Below) Other HEENT History: wears glasses/contacts Cardiovascular History: Reports: None Respiratory History: Reports: Asthma Gastrointestinal History: Reports: None Genitourinary History: Reports: None [employer]Y History: Reports: , Spontaneous Musculoskeletal History: Reports: None Neurological History: Reports: Concussion, Migraines Psychiatric History: Reports: Addiction, Anxiety, Bipolar, Depression, PTSD, Other (See Below) Other Psychiatric History: hx of deliberate self-cutting Endocrine/Metabolic History: Reports: None Hematologic History: Reports: Blood Transfusion(s) Immunologic History: Reports: None Oncologic (Cancer) History: Reports: None Dermatologic History: Reports: None - Infectious Disease History Infectious Disease History: Reports: Chicken Pox - Past Surgical History Head Surgeries/Procedures: Reports: None HEENT Surgical History: Reports: Tonsillectomy Cardiovascular Surgical History: Reports: None Respiratory Surgical History: Reports: None GI Surgical History: Reports: Cholecystectomy Female Surgical History: Reports: D&C Endocrine Surgical History: Reports: None Neurological Surgical History: Reports: None Musculoskeletal Surgical History: Reports: None Oncologic Surgical History: Reports: None Dermatological Surgical History: Reports: None Social & Family History - Family History Family Medical History: No Pertinent Family History - Tobacco Use Tobacco Use Status *Q: Current Every Day Tobacco User Years of Tobacco use: 5 Packs/Tins Daily: 1 - Caffeine Use Caffeine Use: Reports: Coffee, Energy Drinks, Soda - Recreational Drug Use Recreational Drug Use: Yes Drug Use in Last 12 Months: Yes Recreational Drug Type: Reports: Methamphetamine Recreational Drug Use Frequency: Not Used In Over 1 Month ED ROS GENERAL - Review of Systems Review Of Systems: See Below Constitutional: Reports: No Symptoms HEENT: Reports: No Symptoms Respiratory: Reports: No Symptoms Cardiovascular: Reports: No Symptoms Endocrine: Reports: No Symptoms GI/Abdominal: Reports: No Symptoms : Reports: No Symptoms Musculoskeletal: Reports: No Symptoms Skin: Reports: No Symptoms Neurological: Reports: No Symptoms Psychiatric: Reports: No Symptoms Hematologic/Lymphatic: Reports: No Symptoms Immunologic: Reports: No Symptoms ED EXAM, GENERAL - Physical Exam Exam: See Below Exam Limited By: No Limitations General Appearance: Alert, WD/WN, No Apparent Distress Ears: Normal External Exam Nose: Normal Inspection Throat/Mouth: Normal Inspection Head: Atraumatic Neck: Normal Inspection Respiratory/Chest: No Respiratory Distress Cardiovascular: Normal Peripheral Pulses Extremities: Other (Laceration to the anterior right thigh some sutures in place to parts of it but open length is about 10 cm) ED GENERAL MEDICAL PROCEDURES - Laceration/Wound Repair Right Thigh Lac/wound length in cm: 10 Appearance: Superficial, Clean Closed with: Venus (2) Complications: No Course - Vital Signs Last Recorded V/S: Last Vital Signs Temp 97.5 F 08/06/21 23:26 Pulse 86 08/06/21 23:26 Resp 20 08/06/21 23:26 BP 134/83 08/06/21 23:26 Pulse Ox 98 08/06/21 23:26 - Orders/Labs/Meds Orders: Active Orders 24 hr Category Date Time Status diphenhydrAMINE [Benadryl] Med 08/06/21 23:52 Once 25 mg IM ONETIME ONE Meds: Medications Discontinued Medications Generic Name Dose Route Start Last Admin Trade Name Bakari PRN Reason Stop Dose Admin Bacitracin 2 dose 08/06/21 23:48 08/06/21 23:51 Bacitracin Oint 1 Gm U/D Packet TOP 08/06/21 23:49 2 dose ONETIME ONE Administration Bacitracin Confirm 08/06/21 23:49 08/06/21 23:52 Bacitracin Oint 1 Gm U/D Packet Administered 08/06/21 23:50 Not Given Dose 2 dose .ROUTE .STK-MED ONE Departure - Departure Time of Disposition: 23:55 Disposition: Home, Self-Care 01 Condition: Good Clinical Impression: Dehiscence of laceration repair - Discharge Information *PRESCRIPTION DRUG MONITORING PROGRAM REVIEWED*: Not Applicable *COPY OF PRESCRIPTION DRUG MONITORING REPORT IN PATIENT CHANCE: Not Applicable Instructions: Wound Dehiscence, [id number] Referrals: PCP,None [Primary Care Provider] - Additional Instructions: The following information is given to patients seen in the emergency department who are being discharged to home. This information is to outline your options for follow-up care. We provide all patients seen in our emergency department with a follow-up referral. The need for follow-up, as well as the timing and circumstances, are variable depending upon the specifics of your emergency department visit. If you don't have a primary care physician on staff, we will provide you with a referral. We always advise you to contact your personal physician following an emergency department visit to inform them of the circumstance of the visit and for follow-up with them and/or the need for any referrals to a consulting specialist. The emergency department will also refer you to a specialist when appropriate. This referral assures that you have the opportunity for follow-up care with a specialist. All of these measure are taken in an effort to provide you with optimal care, which includes your follow-up. Under all circumstances we always encourage you to contact your private physician who remains a resource for coordinating your care. When calling for follow-up care, please make the office aware that this follow-up is from your recent emergency room visit. If for any reason you are refused follow-up, please contact the [facility] Emergency Department at and asked to speak to the emergency department charge nurse. Please follow up with your primary care physician. If you do not have a primary care physician, see below: [facility] [address] [place] [id number] [facility] [address] [place] [id number] You are seen today if you need your laceration repaired as you possibly sutures out. We repaired and put some roge there. Continue to keep the area dry and clean. Please follow-up with your primary care physician have these removed in the next 7 to 10 days. Sepsis Event Note (ED) - Evaluation Sepsis Screening Result: No Definite Risk - Focused Exam Vital Signs: Vital Signs Temp Pulse Resp BP Pulse Ox 08/06/21 23:26 97.5 F 86 20 134/83 98 - My Orders Last 24 Hours: My Active Orders 08/06/21 23:52 diphenhydrAMINE [Benadryl] 25 mg IM ONETIME ONE - Assessment/Plan Last 24 Hours: My Active Orders 08/06/21 23:52 diphenhydrAMINE [Benadryl] 25 mg IM ONETIME ONE Plan: Is a 30-year-old female presents today after she pulled some her sutures out. Patient was seen here earlier had sutures placed. She is currently on a hold awaiting placement for psychiatric evaluation. We repaired the suture and patient will be discharged back into police custody while she waits for placement.
== END 2021-08-07 | disposition home or self-care (01) ==
LOC: MW.ED 23:23
DX: T81.33XA Disruption of traumatic injury wound repair, initial encounter (principal); J45.909 Unspecified asthma, uncomplicated; Z72.0 Tobacco use; Z88.1 Allergy status to other antibiotic agents
CPT/HCPCS: 12004; 93005; 96372; 99282; J1200

== ENCOUNTER 2021-08-07 11:31 | Emergency (ER) | payer BC ==
--- NOTE | 2021-08-07 12:09 | EDM.PDOC ---
ED HPI GENERAL MEDICAL PROBLEM - General Chief Complaint: Behavioral/Psych Stated Complaint: MEDICAL CLEARANCE W/PD Time Seen by Provider: 08/07/21 11:31 Source of Information: Reports: Patient History Limitations: Reports: No Limitations - History of Present Illness INITIAL COMMENTS - FREE TEXT/NARRATIVE: HISTORY AND PHYSICAL: History of present illness: Patient is a 30-year-old female who presents emergency room today in law enforcement custody with a court ordered psychiatric transfer. According to paperwork brought in by and signed by the appellate court judge from a enforcement, patient is to require an inpatient psychiatric transfer for concern of suicidal ideation with a plan. According to paperwork of law enforcement, patient states that she plans to bleed out by opening stitches that she had sutured yesterday after a self-inflicted wound of her right thigh. Upon arrival to the ED, patient does state that she is "50-50 "about wanting to . Patient states that she has fleeting moments and states that if she were to from bleeding out, she would not care. Patient states that she is trying to open up the dressing to bleed out and would not care if she . Patient denies any other symptoms or concerns. Patient denies fever, chills, chest pain, shortness of breath, or cough. Denies headache, neck stiff ness, change in vision, syncope, or near syncope. Denies nausea, vomiting, abdominal pain, diarrhea, constipation, or dysuria. Has not noted any blood in urine or stool. Patient has been eating and drinking appropriately. Review of systems: As per history of present illness and below otherwise all systems reviewed and negative. Past medical history: As per history of present illness and as reviewed below otherwise noncontributory. Surgical history: As per history of present illness and as reviewed below otherwise noncontributory. Social history: See social history for further information Family history: As per history of present illness and as reviewed below otherwise noncontributory. Physical exam: General: Patient is alert, oriented, and in no acute distress. Patient sitting comfortably on exam table. Vitals stable and reviewed by me. HEENT: Atraumatic, normocephalic, pupils equal and reactive bilaterally, negative for conjunctival pallor or scleral icterus, mucous membranes moist, throat clear, neck supple, nontender, trachea midline. No drooling or trismus noted. No meningeal signs. No hot potato voice noted. Lungs: Clear to auscultation, breath sounds equal bilaterally, chest nontender. Heart: S1S2, regular rate and rhythm without overt murmur Abdomen: Soft, nondistended, nontender. Negative for masses or hepatosplenomegaly. Negative for costovertebral tenderness. Pelvis: Stable nontender. Genitourinary: Deferred. Rectal: Deferred. Skin: Intact, warm, dry. No lesions or rashes noted. Extremities: There is a 13cm sutured / stapled laceration of the right anterior thigh without erythema or drainage. Scarring of prior self mutilation injuries noted around laceration. Otherwise, atraumatic, negative for cords or calf pain. Neurovascular unremarkable. Neuro: Awake, alert, oriented. Cranial nerves II through XII unremarkable. Cerebellum unremarkable. Motor and sensory unremarkable throughout. Exam nonfocal. Notes: Patient is a 30-year-old female who presents emergency room today with a court ordered psychiatric transfer for concern of suicidal ideation with a plan. Upon arrival to the ED, patient agrees with this statement and states that she does fleeting thoughts of wanting to kill her self and did try to open up her laceration to kill her self. Upon arrival to the ED, patient is vitally stable and well-appearing on exam and does have a sutured large 13 cm laceration of her right anterior thigh without drainage or erythema surrounding the laceration. Will obtain mental health screening labs with anticipation to transfer patient to a psychiatric provider for further evaluation. See Dr. Leiva dictation for specific EKG interpretation CBC is notable for a microcytic anemia with a red blood cell of 4.12, hematocrit 32.8, and hemoglobin of 10.4. In comparison to lab work done in May, this is stable. This does have microcytic indices with MCV decreased at 79.6, and MCH at 25.2. Patient does have mild thrombocytopenia with platelets at 471, mild leukocytosis with white blood cells at 11.02, otherwise mild derangements of CBC unremarkable. CMP mild derangements unremarkable. TSH within normal limits. Urinalysis does show 15 ketones, small leukocyte esterase with no red blood cell s, 1-4 white blood cells. Urinalysis negative for infection. Urine drug screen negative. Salicylate negative. Acetaminophen negative. ETOH alcohol 3. hCG negative. COVID negative. I did call and speak to psychiatry administration clerk for [facility] Black[facility] Dr. Wake and thoroughly discussed patients case. Accepting of transfer. Patient discharged to law enforcement custody for transfer to Dr. Olvera, [facility] psychiatry. Diagnostics: Mental health screening labs Therapeutics: None Impression: Suicidal ideation with a plan Medical screening exam Microcytic anemia, unspecified, stable Plan: Transfer to [facility] facility via law enforcement to Dr. Olvera psychiatry Definitive disposition and diagnosis as appropriate pending reevaluation and review of above. - Related Data Allergies Allergy/AdvReac Type Severity Reaction Status Date / Time loracarbef [From Lorabid] Allergy Rash Verified 08/06/21 23:25 Home Meds: Home Meds . [No Known Home Meds] 08/06/21 [History] Past Medical History HEENT History: Reports: Other (See Below) Other HEENT History: wears glasses/contacts Cardiovascular History: Reports: None Respiratory History: Reports: Asthma Gastrointestinal History: Reports: None Genitourinary History: Reports: None [employer] History: Reports: , Spontaneous Musculoskeletal History: Reports: None Neurological History: Reports: Concussion, Migraines Psychiatric History: Reports: Addiction, Anxiety, Bipolar, Depression, PTSD, Other (See Below) Other Psychiatric History: hx of deliberate self-cutting Endocrine/Metabolic History: Reports: None Hematologic History: Reports: Blood Transfusion(s) Immunologic History: Reports: None Oncologic (Cancer) History: Reports: None Dermatologic History: Reports: None - Infectious Disease History Infectious Disease History: Reports: Chicken Pox - Past Surgical History Head Surgeries/Procedures: Reports: None HEENT Surgical History: Reports: Tonsillectomy Cardiovascular Surgical History: Reports: None Respiratory Surgical History: Reports: None GI Surgical History: Reports: Cholecystectomy Female Surgical History: Reports: D&C Endocrine Surgical History: Reports: None Neurological Surgical History: Reports: None Musculoskeletal Surgical History: Reports: None Oncologic Surgical History: Reports: None Dermatological Surgical History: Reports: None Social & Family History - Family History Family Medical History: No Pertinent Family History - Tobacco Use Tobacco Use Status *Q: Never Tobacco User - Caffeine Use Caffeine Use: Reports: None - Recreational Drug Use Recreational Drug Use: Yes Recreational Drug Type: Reports: Methamphetamine Recreational Drug Use Frequency: Weekly ED ROS GENERAL - Review of Systems Review Of Systems: Comprehensive ROS is negative, except as noted in HPI. ED EXAM, GENERAL - Physical Exam Exam: See Below (see dictation) Course - Vital Signs Last Recorded V/S: Last Vital Signs Temp 98.2 F 08/07/21 13:39 Pulse 99 08/07/21 13:39 Resp 17 08/07/21 13:39 BP 105/69 08/07/21 13:39 Pulse Ox 98 08/07/21 13:39 - Orders/Labs/Meds Labs: Laboratory Tests 08/07/21 08/07/21 08/07/21 Range/Units 12:04 12:04 12:18 WBC 11.02 H (4.0-11.0) K/uL RBC 4.12 L (4.30-5.90) M/uL Hgb 10.4 L (12.0-16.0) g/dL Hct 32.8 L (36.0-46.0) % MCV 79.6 L (80.0-98.0) fL MCH 25.2 L (27.0-32.0) pg MCHC 31.7 (31.0-37.0) g/dL RDW Std Deviation 48.9 (28.0-62.0) fl RDW Coeff of Mega 17 H (11.0-15.0) % Plt Count 471 H (150-400) K/uL MPV 9.80 (7.40-12.00) fL Neut % (Auto) 68.0 (48.0-80.0) % Lymph % (Auto) 24.4 (16.0-40.0) % Dougherty % (Auto) 7.2 (0.0-15.0) % Eos % (Auto) 0.3 (0.0-7.0) % Baso % (Auto) 0.1 (0.0-1.5) % Neut # (Auto) 7.5 H (1.4-5.7) K/uL Lymph # (Auto) 2.7 H (0.6-2.4) K/uL Dougherty # (Auto) 0.8 (0.0-0.8) K/uL Eos # (Auto) 0.0 (0.0-0.7) K/uL Baso # (Auto) 0.0 (0.0-0.1) K/uL Nucleated RBC % 0.0 /100WBC Nucleated RBCs # 0 K/uL Sodium 136 (136-145) mmol/L Potassium 4.2 (3.5-5.1) mmol/L Chloride 98 (98-107) mmol/L Carbon Dioxide 24.8 (21.0-32.0) mmol/L BUN 14 (7.0-18.0) mg/dL Creatinine 0.6 (0.6-1.0) mg/dL Est Cr Clr Drug Dosing 119.47 mL/min Estimated GFR (MDRD) > 60.0 ml/min Glucose 91 (74-106) mg/dL Calcium 8.8 (8.5-10.1) mg/dL Magnesium 1.9 (1.8-2.4) mg/dL Total Bilirubin 0.8 (0.2-1.0) mg/dL AST 14 L (15-37) IU/L ALT 24 (14-63) IU/L Alkaline Phosphatase 65 (46-116) U/L Total Protein 8.3 H (6.4-8.2) g/dL Albumin 4.5 (3.4-5.0) g/dL Globulin 3.8 (2.6-4.0) g/dL Albumin/Globulin Ratio 1.2 (0.9-1.6) TSH, Ultra Sensitive 1.17 (0.36-3.74) uIU/mL Urine Color YELLOW Urine Appearance CLEAR Urine pH 6.0 (5.0-8.0) Ur Specific [place] 1.020 (1.001-1.035) Urine Protein NEGATIVE (NEGATIVE) mg/dL Urine Glucose (UA) NEGATIVE (NEGATIVE) mg/dL Urine Ketones 15 H (NEGATIVE) mg/dL Urine Occult Blood SMALL H (NEGATIVE) Urine Nitrite NEGATIVE (NEGATIVE) Urine Bilirubin NEGATIVE (NEGATIVE) Urine Urobilinogen 0.2 (<2.0) EU/dL Ur Leukocyte Esterase SMALL H (NEGATIVE) Urine RBC NONE SEEN (0-2/HPF) Urine WBC 1-4 (0-5/HPF) Ur Epithelial Cells OCCASIONAL (NONE-FEW) Urine Bacteria 2+ H (NEGATIVE) Urine Mucus LIGHT (NONE-MOD) Urine HCG, Qual (NEGATIVE) Salicylates <0.2 (0-20) mg/dL Urine Opiates Screen (NEGATIVE) Ur Oxycodone Screen (NEGATIVE) Urine Methadone Screen (NEGATIVE) Acetaminophen <2.0 ug/mL Ur Barbiturates Screen (NEGATIVE) Ur Phencyclidine Scrn (NEGATIVE) Ur Amphetamine Screen (NEGATIVE) U Methamphetamines Scrn (NEGATIVE) U Benzodiazepines Scrn (NEGATIVE) U Cocaine Metab Screen (NEGATIVE) U Marijuana (THC) Screen (NEGATIVE) Ethyl Alcohol 3 mg/dL SARS-CoV-2 RNA (MICH) (NEGATIVE) 08/07/21 08/07/21 08/07/21 Range/Units 12:18 12:18 12:37 WBC (4.0-11.0) K/uL RBC (4.30-5.90) M/uL Hgb (12.0-16.0) g/dL Hct (36.0-46.0) % MCV (80.0-98.0) fL MCH (27.0-32.0) pg MCHC (31.0-37.0) g/dL RDW Std Deviation (28.0-62.0) fl RDW Coeff of Mega (11.0-15.0) % Plt Count (150-400) K/uL MPV (7.40-12.00) fL Neut % (Auto) (48.0-80.0) % Lymph % (Auto) (16.0-40.0) % Dougherty % (Auto) (0.0-15.0) % Eos % (Auto) (0.0-7.0) % Baso % (Auto) (0.0-1.5) % Neut # (Auto) (1.4-5.7) K/uL Lymph # (Auto) (0.6-2.4) K/uL Dougherty # (Auto) (0.0-0.8) K/uL Eos # (Auto) (0.0-0.7) K/uL Baso # (Auto) (0.0-0.1) K/uL Nucleated RBC % /100WBC Nucleated RBCs # K/uL Sodium (136-145) mmol/L Potassium (3.5-5.1) mmol/L Chloride (98-107) mmol/L Carbon Dioxide (21.0-32.0) mmol/L BUN (7.0-18.0) mg/dL Creatinine (0.6-1.0) mg/dL Est Cr Clr Drug Dosing mL/min Estimated GFR (MDRD) ml/min Glucose (74-106) mg/dL Calcium (8.5-10.1) mg/dL Magnesium (1.8-2.4) mg/dL Total Bilirubin (0.2-1.0) mg/dL AST (15-37) IU/L ALT (14-63) IU/L Alkaline Phosphatase (46-116) U/L Total Protein (6.4-8.2) g/dL Albumin (3.4-5.0) g/dL Globulin (2.6-4.0) g/dL Albumin/Globulin Ratio (0.9-1.6) TSH, Ultra Sensitive (0.36-3.74) uIU/mL Urine Color Urine Appearance Urine pH (5.0-8.0) Ur Specific [place] (1.001-1.035) Urine Protein (NEGATIVE) mg/dL Urine Glucose (UA) (NEGATIVE) mg/dL Urine Ketones (NEGATIVE) mg/dL Urine Occult Blood (NEGATIVE) Urine Nitrite (NEGATIVE) Urine Bilirubin (NEGATIVE) Urine Urobilinogen (<2.0) EU/dL Ur Leukocyte Esterase (NEGATIVE) Urine RBC (0-2/HPF) Urine WBC (0-5/HPF) Ur Epithelial Cells (NONE-FEW) Urine Bacteria (NEGATIVE) Urine Mucus (NONE-MOD) Urine HCG, Qual NEGATIVE (NEGATIVE) Salicylates (0-20) mg/dL Urine Opiates Screen NEGATIVE (NEGATIVE) Ur Oxycodone Screen NEGATIVE (NEGATIVE) Urine Methadone Screen NEGATIVE (NEGATIVE) Acetaminophen ug/mL Ur Barbiturates Screen NEGATIVE (NEGATIVE) Ur Phencyclidine Scrn NEGATIVE (NEGATIVE) Ur Amphetamine Screen NEGATIVE (NEGATIVE) U Methamphetamines Scrn NEGATIVE (NEGATIVE) U Benzodiazepines Scrn NEGATIVE (NEGATIVE) U Cocaine Metab Screen NEGATIVE (NEGATIVE) U Marijuana (THC) Screen NEGATIVE (NEGATIVE) Ethyl Alcohol mg/dL SARS-CoV-2 RNA (MICH) NEGATIVE (NEGATIVE) Meds: Medications Discontinued Medications Generic Name Dose Route Start Last Admin Trade Name Freq PRN Reason Stop Dose Admin Nicotine 21 mg 08/07/21 12:41 08/07/21 12:47 Nicotine 21 Mg/24 Hr Patch TRDERM 08/07/21 12:42 21 mg ONETIME ONE Administration Departure - Departure Time of Disposition: 13:43 Disposition: DC/Tfer to Psych Hosp/Unit 65 Clinical Impression: Suicidal ideation, Encounter for medical screening examination, Microcytic anemia - Discharge Information Referrals: PCP,None [Primary Care Provider] - Forms: ED Department Discharge Sepsis Event Note (ED) - Evaluation Sepsis Screening Result: No Definite Risk - Focused Exam Vital Signs: Vital Signs Temp Pulse Resp BP Pulse Ox 08/07/21 13:39 98.2 F 99 17 105/69 98 08/07/21 11:45 96.7 F L 88 16 112/57 L 96
--- NOTE | 2021-08-07 12:36 | PCM.EKG ---
#1 Interpretation EKG Interpretation Comments: EKG dated 08/07/2021 at 12:25 PM shows a sinus rhythm with a heart rate of 73 OK 175 QT duration 431 axis 78 QRS RSR prime in V1 and V2 nonspecific T wave abnormality in lead III compared 10/13/2018 the T wave is now normalized in aVF but this may be lead placement. Impression no acute injury
[2021-08-07] MEDS ORDERED: Nicotine 21 MG/24 Hr Patch TRDERM ONE (12:41)
[2021-08-07 13:00] LABS: ACETAMINOPHEN <2.0 ug/mL; BLOOD UREA NITROGEN,BUN 14 mg/dL (7.0-18.0); CARBON DIOXIDE,CO2 24.8 mmol/L (21.0-32.0); CHLORIDE,CL 98 mmol/L (98-107); GLUCOSE RANDOM 91 mg/dL (74-106); POTASSIUM,K 4.2 mmol/L (3.5-5.1); SODIUM,NA 136 mmol/L (136-145)
[2021-08-07 13:40] VITALS: BP 105/69; PULSE 99
== END 2021-08-07 14:06 ==
LOC: MW.ED 11:31
DX: D50.9 Iron deficiency anemia, unspecified (principal); Z88.8 Allergy status to other drugs, medicaments and biological substances; Z20.822 Contact with and (suspected) exposure to COVID-19
CPT/HCPCS: 36415; 80053; 80143; 80179; 80305; 80307; 81001; 81025; 83735; 84443; 85025; 87635; 99285; A9270; U0002

== ENCOUNTER 2021-10-11 23:41 | Emergency (ER) | payer BC ==
[2021-10-11] MEDS ORDERED: Sodium Chloride 0.9% 2.5 ML Syringe FLUSH PRN (23:48)
[2021-10-11] MEDS ORDERED: Sodium Chloride 0.9% 10 ML Syringe FLUSH PRN (23:48)
[2021-10-11 23:57] VITALS: BP 143/116; PULSE 113
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
[2021-10-12] MEDS: LORazepam 2 MG/ML SDV IVPUSH ONE ×2 (00:18→00:33)
[2021-10-12] MEDS ORDERED: LORazepam 2 MG/ML SDV IM ONE (00:30)
[2021-10-12 00:40] LABS: BLOOD UREA NITROGEN,BUN 21 mg/dL (7.0-18.0); CARBON DIOXIDE,CO2 22.7 mmol/L (21.0-32.0); CHLORIDE,CL 100 mmol/L (98-107); GLUCOSE RANDOM 99 mg/dL (74-106); POTASSIUM,K 3.9 mmol/L (3.5-5.1); SODIUM,NA 139 mmol/L (136-145)
== END 2021-10-12 01:45 | disposition left against medical advice (07) ==
LOC: MW.ED 23:41
DX: F15.90 Other stimulant use, unspecified, uncomplicated (principal); Z72.0 Tobacco use; Z88.8 Allergy status to other drugs, medicaments and biological substances
CPT/HCPCS: 36415; 80053; 80307; 82550; 83735; 84100; 84484; 84703; 85025; 85730; 93005; 96372; 99284; J2060

== ENCOUNTER 2022-01-16 20:51 | Emergency (ER) | payer BC ==
[2022-01-16] MEDS ORDERED: OLANZapine 10 MG in Water For Injection, Sterile 2.1 ML IM ONE (22:24)
[2022-01-16] MEDS ORDERED: LORazepam 2 MG/ML SDV IM ONE (22:24)
[2022-01-16 23:08] LABS: ACETAMINOPHEN <2.0 ug/mL; BLOOD UREA NITROGEN,BUN 14 mg/dL (7.0-18.0); CARBON DIOXIDE,CO2 18.5 mmol/L (21.0-32.0); CHLORIDE,CL 102 mmol/L (98-107); GLUCOSE RANDOM 111 mg/dL (74-106); POTASSIUM,K 3.4 mmol/L (3.5-5.1); SODIUM,NA 140 mmol/L (136-145)
[2022-01-17 12:01] VITALS: BP 92/40; PULSE 94
== END 2022-01-17 12:38 ==
LOC: MW.ED 20:51
DX: F15.929 Other stimulant use, unspecified with intoxication, unspecified (principal); S60.811A Abrasion of right wrist, initial encounter; Z88.1 Allergy status to other antibiotic agents; Z90.49 Acquired absence of other specified parts of digestive tract; Z20.822 Contact with and (suspected) exposure to COVID-19; X78.9XXA Intentional self-harm by unspecified sharp object, initial encounter
CPT/HCPCS: 36415; 80053; 80143; 80179; 80307; 83735; 85025; 87635; 93005; 96372; 99285; J2060; J3490; 93010; U0002

== ENCOUNTER 2022-02-07 19:19 | Emergency (ER) | payer BC ==
[2022-02-07 20:11] VITALS: BP 142/72; PULSE 103
== END 2022-02-07 20:09 | disposition home or self-care (01) ==
LOC: MW.ED 19:19
DX: S71.111A Laceration without foreign body, right thigh, initial encounter (principal); F19.90 Other psychoactive substance use, unspecified, uncomplicated; F91.9 Conduct disorder, unspecified; E66.9 Obesity, unspecified; Z68.30 Body mass index [BMI] 30.0-30.9, adult; X78.9XXA Intentional self-harm by unspecified sharp object, initial encounter
CPT/HCPCS: 99282; 99284

== ENCOUNTER 2022-03-01 03:15 | Emergency (ER) | payer BC ==
[2022-03-01 03:56] LABS: ACETAMINOPHEN <2.0 ug/mL; BLOOD UREA NITROGEN,BUN 10 mg/dL (7.0-18.0); CARBON DIOXIDE,CO2 23.2 mmol/L (21.0-32.0); CHLORIDE,CL 105 mmol/L (98-107); GLUCOSE RANDOM 117 mg/dL (74-106); POTASSIUM,K 3.2 mmol/L (3.5-5.1); SODIUM,NA 141 mmol/L (136-145)
[2022-03-01] MEDS ORDERED: Haloperidol Lactate 5 MG/ML SDV IM STA (04:11)
[2022-03-01] MEDS ORDERED: Haloperidol Lactate 5 MG/ML SDV ONE (04:12)
[2022-03-01 05:26] VITALS: BP 99/55; PULSE 98
== END 2022-03-01 05:31 ==
LOC: MW.ED 03:15
DX: F10.129 Alcohol abuse with intoxication, unspecified (principal); E66.9 Obesity, unspecified; Z68.25 Body mass index [BMI] 25.0-25.9, adult; Z88.8 Allergy status to other drugs, medicaments and biological substances; Z20.822 Contact with and (suspected) exposure to COVID-19; Y90.7 Blood alcohol level of 200-239 mg/100 ml
CPT/HCPCS: 36415; 70450; 71045; 72125; 72170; 80053; 80143; 80179; 80307; 82550; 83735; 84443; 84703; 85025; 85610; 87635; 93005; 96372; 99285; J1630; U0002

== ENCOUNTER 2024-03-02 15:59 | Emergency (ER) | payer BC ==
[2024-03-02 17:30] VITALS: BP 111/65; PULSE 78
[2024-03-02] MEDS: Famotidine 20 MG Tab PO ONE (17:36)
[2024-03-02] MEDS: Ondansetron 4 MG Tab.DIS PO ONE (17:36)
== END 2024-03-02 17:37 | disposition home or self-care (01) ==
LOC: MW.ED 15:59
DX: R21 Rash and other nonspecific skin eruption (principal); R11.0 Nausea; T43.595A Adverse effect of other antipsychotics and neuroleptics, initial encounter; E66.9 Obesity, unspecified; Z68.34 Body mass index [BMI] 34.0-34.9, adult; Z88.8 Allergy status to other drugs, medicaments and biological substances
CPT/HCPCS: 99283; A9270

== ENCOUNTER 2024-03-21 19:59 | Emergency (ER) | payer BC ==
[2024-03-21] MEDS: Ondansetron 4 MG Tab.DIS PO ONE (20:53)
[2024-03-21 21:20] VITALS: BP 120/66; PULSE 90
== END 2024-03-21 21:20 | disposition home or self-care (01) ==
LOC: MW.ED 19:59
DX: F32.A Depression, unspecified (principal); E66.9 Obesity, unspecified; Z79.899 Other long term (current) drug therapy; Z88.8 Allergy status to other drugs, medicaments and biological substances; Z75.8 Other problems related to medical facilities and other health care
CPT/HCPCS: 99284; A9270; 99283

== ENCOUNTER 2024-03-22 04:31 | Emergency (ER) | payer BC ==
[2024-03-22 04:37] VITALS: BP 127/67; PULSE 106
== END 2024-03-22 04:42 | disposition left against medical advice (07) ==
LOC: MW.ED 04:31
DX: Z53.21 Procedure and treatment not carried out due to patient leaving prior to being seen by health care provider (principal)

== ENCOUNTER 2024-06-25 10:22 | Emergency (ER) | payer BC ==
[2024-06-25] MEDS: Sodium Chloride 0.9% 1,000 ML IV ONE (10:48)
[2024-06-25] MEDS: LORazepam 1 MG Tab PO ONE (10:48)
[2024-06-25 11:27] LABS: BASOPHILS ABSOLUTE AUTO 0.03 K/uL (0.00-0.20); BASOPHILS PERCENT AUTO 0.3 % (0.0-1.0); EOSINOPHILS ABSOLUTE AUTO 0.08 K/uL (0.00-0.45); EOSINOPHILS PERCENT AUTO 0.7 % (0.0-6.0); HEMATOCRIT 35.9 % (37.0-47.0); HEMOGLOBIN 12.3 g/dL (12.0-16.0); IMMATURE GRAN ABSOLUTE AUTO 0.03 K/uL (0.00-0.05); IMMATURE GRAN PERCENT AUTO 0.3 % (0.0-0.4); LYMPHOCYTES ABSOLUTE AUTO 3.33 K/uL (1.00-4.80); LYMPHOCYTES PERCENT AUTO 31.1 % (24.0-44.0); MEAN CORPUSCULAR HGB CONC 34.3 g/dL (32.0-36.0); MEAN CORPUSCULAR VOLUME 87.6 fL (83.0-99.0); MEAN PLATELET VOLUME 9.3 fL (9.4-12.3); MONOCYTES ABSOLUTE AUTO 0.78 K/uL (0.00-0.80); MONOCYTES PERCENT AUTO 7.3 % (0.0-8.0); NEUTROPHILS ABSOLUTE AUTO 6.47 K/uL (1.80-7.70); NEUTROPHILS PERCENT AUTO 60.3 % (41.0-71.0); PLATELET COUNT,PLT 383 K/uL (150-400); WHITE BLOOD CELL COUNT,WBC 10.72 K/uL (3.9-11.3)
[2024-06-25 11:48] LABS: A/G RATIO 1.2 (0.9-1.6); ALBUMIN 4.7 g/dL (3.4-5.0); BILIRUBIN TOTAL 0.9 mg/dL (0.2-1.0); CALCIUM 9.3 mg/dL (8.5-10.1); EST CRCL DRUG DOSING (CG) 69.74 mL/min; POTASSIUM,K 3.5 mmol/L (3.5-5.1); PROTEIN TOTAL,TP 8.5 g/dL (6.4-8.2)
[2024-06-25 11:57] LABS: COLOR,URINE YELLOW; GLUCOSE,URINE NEGATIVE (NEGATIVE); KETONES,URINE >=80 mg/dL (NEGATIVE); LEUKOCYTE ESTERASE,URINE NEGATIVE (NEGATIVE); NITRITE,URINE NEGATIVE (NEGATIVE); OCCULT BLOOD,URINE LARGE (NEGATIVE); PROTEIN,URINE 30 mg/dL (NEGATIVE); UROBILINOGEN,URINE 0.2 EU/dL (<2.0)
[2024-06-25 12:06] LABS: APPEARANCE,URINE HAZY; BACTERIA,URINE 1+ (NEGATIVE); BILIRUBIN,URINE MODERATE (NEGATIVE); EPITHELIAL CELLS,URINE OCCASIONAL (NONE-FEW); MUCUS,URINE MODERATE (NONE-MOD); RBC,URINE 0-2 (0-2/HPF); WBC,URINE 0-1 (0-5/HPF)
[2024-06-25 12:23] VITALS: BP 123/74; PULSE 104
== END 2024-06-25 12:23 | disposition home or self-care (01) ==
LOC: MW.ED 10:22
DX: F15.10 Other stimulant abuse, uncomplicated (principal); J45.909 Unspecified asthma, uncomplicated; E66.9 Obesity, unspecified; Z79.899 Other long term (current) drug therapy; Z88.8 Allergy status to other drugs, medicaments and biological substances; Z75.8 Other problems related to medical facilities and other health care
CPT/HCPCS: 36415; 80053; 81001; 81025; 85025; 93005; 96360; 99285; A9270; J7030; 93010; 99283

== ENCOUNTER 2024-12-06 17:18 | Emergency (ER) | payer BC ==
[2024-12-06] MEDS: Sodium Chloride 0.9% 1,000 ML IV ONE (17:46)
[2024-12-06] MEDS: Ketorolac 30 MG/ML SDV IVPUSH ONE (18:10)
[2024-12-06] MEDS: Ondansetron 4 MG/2 ML SDV IVPUSH ONE (18:10)
[2024-12-06 18:27] LABS: APPEARANCE,URINE SLT CLOUDY; BILIRUBIN,URINE NEGATIVE (NEGATIVE); COLOR,URINE DARK YELLOW; GLUCOSE,URINE NEGATIVE (NEGATIVE); KETONES,URINE NEGATIVE (NEGATIVE); LEUKOCYTE ESTERASE,URINE NEGATIVE (NEGATIVE); NITRITE,URINE NEGATIVE (NEGATIVE); OCCULT BLOOD,URINE LARGE (NEGATIVE); PROTEIN,URINE TRACE mg/dL (NEGATIVE); UROBILINOGEN,URINE <2.0 EU/dL (<2.0)
[2024-12-06 18:28] LABS: BACTERIA,URINE 1+ (NEGATIVE); EPITHELIAL CELLS,URINE MODERATE (NONE-FEW); MUCUS,URINE MODERATE (NONE-MOD)
[2024-12-06] MEDS: Ondansetron 4 MG Tab.DIS PO ONE (18:31)
[2024-12-06] MEDS: Acetaminophen/oxyCODONE 325-5 MG Tab PO ONE (18:31)
[2024-12-06 18:45] LABS: BASOPHILS ABSOLUTE AUTO 0.03 K/uL (0.00-0.20); BASOPHILS PERCENT AUTO 0.3 % (0.0-1.0); EOSINOPHILS ABSOLUTE AUTO 0.08 K/uL (0.00-0.45); EOSINOPHILS PERCENT AUTO 0.7 % (0.0-6.0); HEMATOCRIT 36.7 % (37.0-47.0); HEMOGLOBIN 12.2 g/dL (12.0-16.0); IMMATURE GRAN ABSOLUTE AUTO 0.03 K/uL (0.00-0.05); IMMATURE GRAN PERCENT AUTO 0.3 % (0.0-0.4); LYMPHOCYTES ABSOLUTE AUTO 3.48 K/uL (1.00-4.80); LYMPHOCYTES PERCENT AUTO 32.2 % (24.0-44.0); MEAN CORPUSCULAR HEMOGLOBIN 29.5 pg (28.0-32.0); MEAN CORPUSCULAR HGB CONC 33.2 g/dL (32.0-36.0); MEAN CORPUSCULAR VOLUME 88.6 fL (83.0-99.0); MEAN PLATELET VOLUME 9.9 fL (9.4-12.3); MONOCYTES ABSOLUTE AUTO 0.75 K/uL (0.00-0.80); MONOCYTES PERCENT AUTO 6.9 % (0.0-8.0); NEUTROPHILS ABSOLUTE AUTO 6.43 K/uL (1.80-7.70); NEUTROPHILS PERCENT AUTO 59.6 % (41.0-71.0); PLATELET COUNT,PLT 355 K/uL (150-400); RED BLOOD CELL COUNT 4.14 M/uL (4.10-5.30)
[2024-12-06 19:09] LABS: BILIRUBIN TOTAL 0.3 mg/dL (0.2-1.0); CALCIUM 9.9 mg/dL (8.5-10.1); CARBON DIOXIDE,CO2 21.9 mmol/L (21.0-32.0); CREATININE 0.7 mg/dL (0.6-1.0); EST CRCL DRUG DOSING (CG) 99.63 mL/min; POTASSIUM,K 4.2 mmol/L (3.5-5.1); PROTEIN TOTAL,TP 8.2 g/dL (6.4-8.2)
[2024-12-06] MEDS ORDERED: Nitrofurantoin Monohydrate/Macrocrystalline 100 MG Cap PO ONE (19:26)
[2024-12-06 19:42] VITALS: BP 100/44; PULSE 75
== END 2024-12-06 19:45 | disposition home or self-care (01) ==
LOC: MW.ED 17:18
DX: N39.0 Urinary tract infection, site not specified (principal); J45.909 Unspecified asthma, uncomplicated; E66.9 Obesity, unspecified; Z68.41 Body mass index [BMI] 40.0-44.9, adult; Z90.49 Acquired absence of other specified parts of digestive tract; Z88.8 Allergy status to other drugs, medicaments and biological substances; Z79.899 Other long term (current) drug therapy; Z75.8 Other problems related to medical facilities and other health care
CPT/HCPCS: 36415; 74176; 80053; 81001; 81025; 83690; 85025; 99284; A9270; 99283; J7030

== ENCOUNTER 2024-12-12 19:08 | Emergency (ER) | payer BC ==
[2024-12-12 20:45] LABS: APPEARANCE,URINE CLEAR; BILIRUBIN,URINE NEGATIVE (NEGATIVE); COLOR,URINE YELLOW; GLUCOSE,URINE NEGATIVE (NEGATIVE); KETONES,URINE NEGATIVE (NEGATIVE); LEUKOCYTE ESTERASE,URINE NEGATIVE (NEGATIVE); NITRITE,URINE NEGATIVE (NEGATIVE); OCCULT BLOOD,URINE NEGATIVE (NEGATIVE); PROTEIN,URINE NEGATIVE (NEGATIVE); UROBILINOGEN,URINE 0.2 EU/dL (<2.0)
[2024-12-12] MEDS: Cyclobenzaprine 10 MG Tab PO STA (21:29)
[2024-12-13 00:09] VITALS: BP 110/60; PULSE 98
== END 2024-12-12 21:45 | disposition home or self-care (01) ==
LOC: MW.ED 19:08
DX: R10.31 Right lower quadrant pain (principal); J45.909 Unspecified asthma, uncomplicated; E66.9 Obesity, unspecified; Z75.8 Other problems related to medical facilities and other health care; Z88.8 Allergy status to other drugs, medicaments and biological substances; Z79.899 Other long term (current) drug therapy; Z90.49 Acquired absence of other specified parts of digestive tract; Z68.41 Body mass index [BMI] 40.0-44.9, adult
CPT/HCPCS: 81003; 81025; 99284; A9270; 99282

== ENCOUNTER 2024-12-21 00:58 | Emergency (ER) | payer BC ==
[2024-12-21] MEDS: Ondansetron 4 MG Tab.DIS PO ONE (01:21)
[2024-12-21] MEDS ORDERED: Sodium Chloride 0.9% 10 ML Syringe FLUSH PRN (01:23)
[2024-12-21] MEDS ORDERED: Sodium Chloride 0.9% 2.5 ML Syringe FLUSH PRN (01:23)
[2024-12-21] MEDS: LORazepam 2 MG/ML SDV IM ONE (01:35)
[2024-12-21] MEDS: droPERidol 2.5 MG/ML SDV IM ONE (01:36)
[2024-12-21] MEDS: LORazepam 2 MG/ML SDV IVPUSH ONE (01:39)
[2024-12-21] MEDS: droPERidol 2.5 MG/ML SDV IVPUSH ONE (01:40)
[2024-12-21 02:00] LABS: BASOPHILS ABSOLUTE AUTO 0.04 K/uL (0.00-0.20); BASOPHILS PERCENT AUTO 0.4 % (0.0-1.0); EOSINOPHILS ABSOLUTE AUTO 0.07 K/uL (0.00-0.45); EOSINOPHILS PERCENT AUTO 0.6 % (0.0-6.0); HEMATOCRIT 37.3 % (37.0-47.0); HEMOGLOBIN 12.7 g/dL (12.0-16.0); IMMATURE GRAN ABSOLUTE AUTO 0.03 K/uL (0.00-0.05); IMMATURE GRAN PERCENT AUTO 0.3 % (0.0-0.4); LYMPHOCYTES ABSOLUTE AUTO 3.81 K/uL (1.00-4.80); LYMPHOCYTES PERCENT AUTO 34.9 % (24.0-44.0); MEAN PLATELET VOLUME 9.9 fL (9.4-12.3); MONOCYTES ABSOLUTE AUTO 0.39 K/uL (0.00-0.80); MONOCYTES PERCENT AUTO 3.6 % (0.0-8.0); NEUTROPHILS ABSOLUTE AUTO 6.59 K/uL (1.80-7.70); NEUTROPHILS PERCENT AUTO 60.2 % (41.0-71.0); PLATELET COUNT,PLT 387 K/uL (150-400); RED BLOOD CELL COUNT 4.24 M/uL (4.10-5.30); WHITE BLOOD CELL COUNT,WBC 10.93 K/uL (3.9-11.3)
[2024-12-21 02:46] LABS: ACETAMINOPHEN <2.0 ug/mL; ALANINE AMINOTRANSFERASE,ALT 54 IU/L (14-63); ALBUMIN 4.2 g/dL (3.4-5.0); ALKALINE PHOSPHATASE 52 U/L (46-116); ASPARTATE AMNIOTRANSFERASE,AST 35 IU/L (15-37); BILIRUBIN TOTAL 0.2 mg/dL (0.2-1.0); BLOOD UREA NITROGEN,BUN 6 mg/dL (7.0-18.0); CALCIUM 8.9 mg/dL (8.5-10.1); CARBON DIOXIDE,CO2 17.7 mmol/L (21.0-32.0); CHLORIDE,CL 108 mmol/L (98-107); CREATININE 0.7 mg/dL (0.6-1.0); ETHANOL BLOOD MEDICAL 264 mg/dL; GLUCOSE RANDOM 140 mg/dL (74-106); POTASSIUM,K 3.8 mmol/L (3.5-5.1); PROTEIN TOTAL,TP 8.4 g/dL (6.4-8.2); SALICYLATE 1.9 mg/dL (0.0-20.0); SODIUM,NA 144 mmol/L (136-145)
[2024-12-21 02:49] LABS: ESTIMATED GFR 117 mL/min (>60)
[2024-12-21 07:04] VITALS: PULSE 119
[2024-12-21 07:48] LABS: AMPHETAMINES SCREEN, URINE NEGATIVE (CUTOFF=500); BARBITURATE SCREEN,URINE NEGATIVE (CUTOFF=200); BENZODIAZEPINES SCREEN,URINE PRESUMPTIVE POSITIVE (CUTOFF=150); BUPRENORPHINE SCREEN,URINE NEGATIVE (CUTOFF=10); METHADONE SCREEN, URINE NEGATIVE (CUTOFF=200); METHAMPHETAMINES SCREEN, URINE NEGATIVE (CUTOFF=500); OXYCODONE SCREEN,URINE NEGATIVE (CUT0FF=100); PCP SCREEN,URINE NEGATIVE (CUTOFF=25); THC SCREEN,URINE 20 NG/ML NEGATIVE (CUTOFF=50)
[2024-12-21 09:04] VITALS: BP 129/63
== END 2024-12-21 09:15 | disposition home or self-care (01) ==
LOC: MW.ED 00:58
DX: S60.811A Abrasion of right wrist, initial encounter (principal); S60.812A Abrasion of left wrist, initial encounter; S70.312A Abrasion, left thigh, initial encounter; S10.91XA Abrasion of unspecified part of neck, initial encounter; F17.210 Nicotine dependence, cigarettes, uncomplicated; F10.129 Alcohol abuse with intoxication, unspecified; J45.909 Unspecified asthma, uncomplicated; Z88.8 Allergy status to other drugs, medicaments and biological substances; X78.9XXA Intentional self-harm by unspecified sharp object, initial encounter; Z79.899 Other long term (current) drug therapy
CPT/HCPCS: 36415; 80053; 80143; 80179; 80305; 80307; 85025; 93005; 96372; 99285; A9270; J2060; 93010; 99283

== ENCOUNTER 2025-06-26 16:39 | Emergency (ER) | payer BC | END 2025-06-26 17:09 | disposition left against medical advice (07) | LOC: MW.ED 16:39 | DX: Z53.21 Procedure and treatment not carried out due to patient leaving prior to being seen by health care provider (principal) ==

== ENCOUNTER 2025-07-11 12:17 | Emergency (ER) | payer BC ==
[2025-07-11 12:45] LABS: APPEARANCE,URINE CLEAR; GLUCOSE,URINE NEGATIVE (NEGATIVE); OCCULT BLOOD,URINE LARGE (NEGATIVE)
[2025-07-11 12:55] LABS: EPITHELIAL CELLS,URINE OCCASIONAL (NONE-FEW)
[2025-07-11 12:58] LABS: BASOPHILS ABSOLUTE AUTO 0.02 K/uL (0.00-0.20); BASOPHILS PERCENT AUTO 0.3 % (0.0-1.0); EOSINOPHILS ABSOLUTE AUTO 0.07 K/uL (0.00-0.45); EOSINOPHILS PERCENT AUTO 1.0 % (0.0-6.0); IMMATURE GRAN ABSOLUTE AUTO 0.01 K/uL (0.00-0.05); IMMATURE GRAN PERCENT AUTO 0.1 % (0.0-0.4); LYMPHOCYTES ABSOLUTE AUTO 2.57 K/uL (1.00-4.80); LYMPHOCYTES PERCENT AUTO 37.2 % (24.0-44.0); MEAN PLATELET VOLUME 9.7 fL (9.4-12.3); MONOCYTES ABSOLUTE AUTO 0.29 K/uL (0.00-0.80); MONOCYTES PERCENT AUTO 4.2 % (0.0-8.0); NEUTROPHILS ABSOLUTE AUTO 3.94 K/uL (1.80-7.70); NEUTROPHILS PERCENT AUTO 57.2 % (41.0-71.0); NRBC ABSOLUTE 0.00 K/uL (0.00-0.02); NRBC PERCENT 0.0 /100WBC (0.0-0.2); PLATELET COUNT,PLT 314 K/uL (150-400); RED BLOOD CELL COUNT 4.37 M/uL (4.10-5.30); WHITE BLOOD CELL COUNT,WBC 6.90 K/uL (3.9-11.3)
[2025-07-11 13:25] LABS: A/G RATIO 1.0 (0.9-1.6); ALANINE AMINOTRANSFERASE,ALT 106.0 IU/L (14-63); ASPARTATE AMNIOTRANSFERASE,AST 90.0 IU/L (15-37); BILIRUBIN TOTAL 0.3 mg/dL (0.2-1.0); BLOOD UREA NITROGEN,BUN 10.0 mg/dL (7.0-18.0); CARBON DIOXIDE,CO2 19.6 mmol/L (21.0-32.0); CHLORIDE,CL 106.0 mmol/L (98-107); CREATININE 0.6 mg/dL (0.6-1.0); EST CRCL DRUG DOSING (CG) 115.16 mL/min; GLUCOSE RANDOM 114.0 mg/dL (74-106); POTASSIUM,K 3.9 mmol/L (3.5-5.1); PROTEIN TOTAL,TP 8.1 g/dL (6.4-8.2); SODIUM,NA 141.0 mmol/L (136-145)
[2025-07-11 13:27] LABS: ESTIMATED GFR 121.0 mL/min (>60)
[2025-07-11 13:33] LABS: CANDIDA DNA PROBE NEGATIVE (NEGATIVE); GARDNERELLA DNA PROBE NEGATIVE (NEGATIVE); TRICHOMONAS DNA PROBE NEGATIVE (NEGATIVE)
[2025-07-11 14:10] LABS: C. TRACHOMATIS BY PCR NOT DETECTED; N. GONORRHOEAE BY PCR NOT DETECTED
[2025-07-11 14:39] VITALS: BP 110/62; PULSE 75
== END 2025-07-11 14:39 | disposition home or self-care (01) ==
LOC: MW.ED 12:17
DX: N93.8 Other specified abnormal uterine and vaginal bleeding (principal); J45.909 Unspecified asthma, uncomplicated; E66.9 Obesity, unspecified; Z68.34 Body mass index [BMI] 34.0-34.9, adult; Z90.49 Acquired absence of other specified parts of digestive tract; Z75.3 Unavailability and inaccessibility of health-care facilities
CPT/HCPCS: 36415; 76830; 76830-26; 80053; 81001; 84703; 85025; 86592; 87480; 87491; 87510; 87591; 87660; 99283; 99284

== ENCOUNTER 2025-09-09 22:48 | Emergency (ER) | payer BC ==
[2025-09-09 23:07] VITALS: BP 139/77; PULSE 96
[2025-09-09 23:17] LABS: APPEARANCE,URINE SLT CLOUDY; GLUCOSE,URINE NEGATIVE (NEGATIVE); OCCULT BLOOD,URINE TRACE-INTACT (NEGATIVE)
[2025-09-09 23:27] LABS: EPITHELIAL CELLS,URINE OCCASIONAL (NONE-FEW)
== END 2025-09-10 00:40 | disposition left against medical advice (07) ==
LOC: MW.ED 22:48
DX: N83.01 Follicular cyst of right ovary (principal); E66.9 Obesity, unspecified; J45.909 Unspecified asthma, uncomplicated; F17.200 Nicotine dependence, unspecified, uncomplicated; Z88.8 Allergy status to other drugs, medicaments and biological substances; Z90.49 Acquired absence of other specified parts of digestive tract; Z68.38 Body mass index [BMI] 38.0-38.9, adult
CPT/HCPCS: 76830; 76857; 81001; 99284; A9270; 99283